=== PATIENT | female | born 1950 | race American Indian/Alaskan Native ===

== ENCOUNTER 2017-11-25 11:20 | Emergency (ER) | payer MEDICARE, MEDICAID ==
[2017-11-25 11:29] VITALS: BMI 37.8
[2017-11-25] MEDS ORDERED: Amiodarone 150mg/3 ml vial ONE (11:45)
--- NOTE | 2017-11-25 12:12 | C.PDOC ---
History Of Present Illness Patient [place] from [place], found unreponsive in her bed at approx 10:30am, in asystole. CPR started by EMS, patient intubated, epi x 3 given with ROSC at approx 11am. Time Seen by Provider: 11/25/17 11:30 Chief Complaint (Nursing): Cardiac Arrest History Per: EMS Reason For Code Blue: Full Arrest Circumstances: Brought To ED By EMS Arrest Witnessed By: No One CPR Initiated Prior To MD Arrival?: Yes Down-Time Before ACLS: Mins (approx 30-40min) Treatment Initiated Prior To MD Arrival: Yes: CPR, BVM Ventilations, Intubation , IVF, ACLS Medication Initiation, IV Access Medications Given Prior To MD Arrival: Yes: Epinephrine (x 3) - Initial Findings Mentation: Unresponsive Respirations: None (Assisted) Pulse: Strong Rhythm: PEA Past Medical History Reviewed: Historical Data, Nursing Documentation, Vital Signs Vital Signs: Last Vital Signs Temp Pulse 87 11/25/17 11:40 Resp 16 11/25/17 12:01 BP 92/17 L 11/25/17 14:14 Pulse Ox 97 11/25/17 21:36 - Medical History PMH: Alzheimer's Disease, CVA, Dementia, Depression, Diabetes, GERD, HTN, Hypercholesterolemia, Hyperthyroidism - [facility] Procedures ENTERAL INFUSION OF CONCENTRATED NUT. SUBSTANCES (01/08/14) OTHER ENDOSCOPY OF SM INTEST (01/08/14) REMOV INTRALUM ESOPH FB (01/08/14) REPLACE GASTROSTOMY TUBE (03/27/15) VENOUS CATHETERIZATION NEC (01/08/14) Family History: States: No Known Family Hx - Social History Hx Tobacco Use: No Hx Alcohol Use: No Hx Substance Use: No - Immunization History Hx Tetanus Toxoid Vaccination: No Hx Influenza Vaccination: Yes Hx Pneumococcal Vaccination: Yes Physical Exam - Physical Exam Appears: Other (unresponsive) Eye(s): bilateral: Other (pupils fixed and dilated) Oral Mucosa: Moist Cardiovascular: Rhythm Regular, No Murmur Respiratory: Wheezing (expiratory wheezing B/L ), Other (assisted ventilations) Gastrointestinal/Abdominal: Other (RUQ PEG tube, obese) ED Course And Treatment Progress Note: Patient arrives to ED in NSR, intubated. Lost pulse, CPR started , given epi x 9, 1 amp bicarb, calcium chloride. Noted to be in pulseless V fib twice, shocked at 300 J x 2 and amiodarone 300mg IVP given. Dopamine IV started. Lost pulses again, several rounds of CPR done. Bedside echo done by me shows no cardiac wall motion, no tamponade. Patient in persistent asystole, time of called at 12:06. - Physician Consult Information Physician Contacted: Brice Flores Outcome Of Conversation: PMD spoken with and notified of patient's . Disposition - Disposition Disposition: WITH WITHOUT AUTOPSY Disposition Time: 12:06 Condition: Forms: [facility] (Yoruba) - Clinical Impression Clinical Impression: Cardiac arrest
[2017-11-25 12:36] VITALS: PULSE 87
[2017-11-25 12:38] VITALS: RESP 16; O2SAT 97
[2017-11-25 14:15] VITALS: BP 92/17
--- NOTE | 2017-11-25 21:29 | C.PDOC ---
History Of Present Illness Evaluation for STEMI s/p cardiac arrest. 67 year old [place] resident brought in by EMS after being found to be unresponsive Per EMS records patient was in PEA and had ROSC post CPR and epi/atropine. I was called for evaluation of possible STEMI s/p cardiac arrest. EKG on arrival reviewed which showed no signs of ischemia. Repeat EKG showed IVCD. patient was unresponsive with no pupillary or corneal reflexes and no gag reflex. Time Seen by Provider: 11/25/17 11:30 Chief Complaint (Nursing): Cardiac Arrest History Per: EMS Reason For Code Blue: Unresponsive Circumstances: Brought To ED By EMS Arrest Witnessed By: No One CPR Initiated Prior To MD Arrival?: Yes Treatment Initiated Prior To MD Arrival: Yes: CPR, Defibrillation Medications Given Prior To MD Arrival: Yes: Other - Initial Findings Mentation: Unresponsive Respirations: Agonal Pulse: Weak Rhythm: Sinus Rhythm Past Medical History Vital Signs: Last Vital Signs Temp Pulse 87 11/25/17 11:40 Resp 16 11/25/17 12:01 BP 92/17 L 11/25/17 14:14 Pulse Ox 97 11/25/17 21:35 - Medical History PMH: Alzheimer's Disease, CVA, Dementia, Depression, Diabetes, GERD, HTN, Hypercholesterolemia, Hyperthyroidism - [facility] Procedures ENTERAL INFUSION OF CONCENTRATED NUT. SUBSTANCES (01/08/14) OTHER ENDOSCOPY OF SM INTEST (01/08/14) REMOV INTRALUM ESOPH FB (01/08/14) REPLACE GASTROSTOMY TUBE (03/27/15) VENOUS CATHETERIZATION NEC (01/08/14) Family History: States: No Known Family Hx - Social History Hx Tobacco Use: No Hx Alcohol Use: No Hx Substance Use: No - Immunization History Hx Tetanus Toxoid Vaccination: No Hx Influenza Vaccination: Yes Hx Pneumococcal Vaccination: Yes Review Of Systems Review Of Systems: ROS cannot be obtained secondary to pt's inabilty to answer questions. Physical Exam - Physical Exam Appears: Toxic Skin: Dry, Mottled Chest: Symmetrical Cardiovascular: Rhythm Regular, Murmur, JVD Respiratory: Decreased Breath Sounds, Rales ED Course And Treatment O2 Sat by Pulse Oximetry: 97 Medical Decision Making Medical Decision Making: Patient with severe anoxic brain injury and no acute ischemic changes on EKG all chart from [place] reviewed patient examined and assessed with ED staff not a candidate for any invasive procedure supportive care until family arrives overall very poor prognosis due to advanced anoxic brain injury Disposition Discussed With : Geraldine Rodriguez Ivanna - Disposition Disposition: WITH WITHOUT AUTOPSY Disposition Time: 11:45 Condition: CRITICAL Forms: [facility] (Khmer) - Clinical Impression Clinical Impression: Cardiac arrest Critical Care Time - Critical Care Note Total Time (in mins): 45 Documented critical care: time excludes all time spent performing seperately billable procedures.
== END 2017-11-25 15:21 ==
LOC: C.ER 11:20
DX: I46.9 Cardiac arrest, cause unspecified (principal)
CPT/HCPCS: 82948; 92950; 96374; 99291; J0171; J0282; J7060